=== PATIENT | male | born 1950 | race Caucasian/White ===

== ENCOUNTER 2024-01-07 12:33 | Emergency (ER) | payer OTHER, MEDICARE ==
[~2024-01-07] VITALS: Ht 177.8 cm; Wt 88.0 kg
[2024-01-07] MEDS ORDERED: HYDROmorphone HCl/Pf 1MG SYR IV ONE (13:30)
[2024-01-07 13:32] LABS: BASOPHILS ABSOLUTE AUTO 0.07 K/mm3 (0.00-0.23); BASOPHILS PERCENT AUTO 1 % (0-2); EOSINOPHILS ABSOLUTE AUTO 0.09 K/mm3 (0.00-0.68); EOSINOPHILS PERCENT AUTO 2 % (0-6); Hemoglobin 11.9 g/dL (13.5-17.5); IMMATURE GRAN ABSOLUTE AUTO 0.04 K/mm3 (0.00-0.10); IMMATURE GRAN PERCENT AUTO 1 % (0-1); LYMPHOCYTES ABSOLUTE AUTO 1.23 K/mm3 (0.84-5.20); LYMPHOCYTES PERCENT AUTO 20 % (21-46); MONOCYTES ABSOLUTE AUTO 0.56 K/mm3 (0.16-1.47); MONOCYTES PERCENT AUTO 9 % (4-13); Mean Corpuscular HGB 31.2 pg (26.0-34.0); Mean Corpuscular Volume 92 fL (80-100); Mean Platelet Volume 9.4 fL (9.1-12.4); NEUTROPHILS PERCENT AUTO 68 % (41-73); Platelet Count 205 K/mm3 (150-400); RDW Coefficient Variation 13.3 % (11.7-14.2); RDW Standard Deviation 44.5 fL (35.1-46.3); Red Blood Cell Count 3.82 M/mm3 (4.30-5.90); White Blood Cell Count 6.19 K/mm3 (4.00-11.30)
[2024-01-07] MEDS ORDERED: LOSA25 PO (13:32)
[2024-01-07] MEDS ORDERED: PANT20 (13:32)
[2024-01-07] MEDS ORDERED: AMLO5 (13:32)
[2024-01-07] MEDS ORDERED: EZET10 (13:33)
[2024-01-07] MEDS ORDERED: Lovastatin10 MG (13:33)
[2024-01-07 13:47] LABS: International Normalized Ratio 1.04; Prothrombin Time Results 10.9 Sec (9.7-11.5)
[2024-01-07 14:08] LABS: Alanine Aminotransfer (ALT/SGP 47 U/L (12-78); Albumin, Blood 3.1 g/dL (3.4-5.0); Alk Phos 72 U/L (50-136); Anion Gap 5 mmol/L (6-16); Aspartate Aminotrans (AST/SGOT 43 U/L (12-37); Bilirubin, Direct <0.1 mg/dL (0.0-0.3); Bilirubin, Total 0.3 mg/dL (0.1-1.0); Blood Urea Nitrogen 20 mg/dL (8-24); Bun/Creatinine Ratio 18.7 (12.0-20.0); CO2, Blood 24 mmol/L (21-32); Calcium, Blood 8.7 mg/dL (8.5-10.1); Chloride, Blood 110 mmol/L (98-108); Creatinine, Blood 1.07 mg/dL (0.60-1.20); Globulin, Blood 3.2 g/dL (2.2-4.0); Glomerular Filtration Rate 74 (60-); Glucose, Blood 126 mg/dL (70-99); Potassium, Blood 3.6 mmol/L (3.5-5.5); Sodium, Blood 139 mmol/L (136-145); Total Protein, Blood 6.3 g/dL (6.4-8.2)
[2024-01-07 14:09] LABS: Bilirubin, Indirect Unable to Calculate mg/dL (0.1-0.7)
[2024-01-07] MEDS ORDERED: Ketorolac Tromethamine 30mg Vial IV ONE ×2 (14:55→15:15)
[2024-01-07] MEDS ORDERED: IBUP600 PO (15:15)
[2024-01-07] MEDS ORDERED: OXAYDO5 M1 PO (15:15)
[2024-01-07] MEDS ORDERED: RX Prepack 6 Tabs Oxycodone 5mg UD ONE (15:15)
[2024-01-07 15:30] VITALS: BP 150/99
== END 2024-01-07 15:35 | disposition home or self-care (01) ==
LOC: ER 12:33
PROVIDERS: Student in an Organized Health Care Education/Training Program
DX: S22.41XA Multiple fractures of ribs, right side, initial encounter for closed fracture (principal); V48.4XXA Person boarding or alighting a car injured in noncollision transport accident, initial encounter; Z88.8 Allergy status to other drugs, medicaments and biological substances
CPT/HCPCS: 71260; 74177; 80048; 80076; 83690; 85025; 85610; 85730; 86850; 86900; 86901; 96374-59; 99284-25; A9270; J1170; J1885; Q9967